=== PATIENT | female | born 1965 | race Caucasian/White ===

== ENCOUNTER 2017-02-11 18:59 | Observation (INO) | payer BC ==
[~2017-02-11] VITALS: Ht 170.2 cm; Wt 102.9 kg
[~2017-02-11 18:59] MED LIST: ADVIL,NUPRIN,M200 MG PO; CITRATE OF MAG296 ML PO; COLACE100 MG PO; ENALAPRIL MALEA10 MG PO; ENALAPRIL MALEAT5 MG PO; Ecotrin PO; LEVOTHROID,S0.125 MG PO; LEVOTHROID100 MCG PO; LEVOTHYROXINE100 MCG PO; LEVOTHYROXINE88 MCG PO; METAMUCIL POWD798 GM PO; TAMIFLU75 MG PO; TERAZOL 745 GM VG; TOPROL XL25 MG PO; ULTRAM50 MG PO; ZITHROMAX500 MG PO
[2017-02-11 20:32] LABS: MCH 30.4 PG (29.0-34.0); MCHC 33.6 G/DL (30.0-36.0); MCV 90.5 FL (83-99); RBC DIS.WIDTH-CV 12.3 % (11.8-14.6); RBC DIS.WIDTH-SD 40.8 % (39-53); RED BLOOD COUNT 4.31 M/uL (3.80-5.20); WHITE BLOOD COUNT 7.9 K/uL (4.1-10.2)
[2017-02-11 20:41] LABS: CHLORIDE 103 mEq/L (99-109); POTASSIUM 3.9 mEq/L (3.7-5.4); SODIUM 140 mEq/L (136-147)
[2017-02-11 20:43] LABS: GLUCOSE 108 mg/dL (70-99)
[2017-02-11 20:45] LABS: ANION GAP 12 MEQ/L (2-14)
[2017-02-11 20:47] LABS: GFR ESTIMATE (CALCULATED) 50 mL/min/
[2017-02-11 20:48] LABS: UREA NITROGEN (BUN) 16 mg/dL (9-23)
[2017-02-11 20:53] LABS: TROP-I INTERPRETATION NEGATIVE; TROPONIN-I < 0.01 ng/mL (0.0-0.30)
[2017-02-11 21:17] LABS: HEMATOLOGY COMMENT 1 SN; MEAN PLAT.VOLUME 11.7 uM^3 (9.5-12.4); PLAT.SUFFICIENCY ADEQUATE; PLATELET COUNT 179 K/uL (156-360)
[2017-02-11] MEDS ORDERED: TOPROL XL25 MG PO (22:50)
[2017-02-11] MEDS ORDERED: TYLENOL EXTRA500 MG PO (22:51)
[2017-02-11] MEDS ORDERED: MICROZIDE12.5 M1 PO (22:51)
[2017-02-11] MEDS ORDERED: VITAMIN B-122000 MC1 PO (22:52)
[2017-02-12 00:38] VITALS: BP 178/106
[2017-02-12 02:44] LABS: MCH 30.5 PG (29.0-34.0); MCHC 33.6 G/DL (30.0-36.0); MCV 90.7 FL (83-99); MEAN PLAT.VOLUME 11.4 uM^3 (9.5-12.4); PLATELET COUNT 164 K/uL (156-360); RBC DIS.WIDTH-CV 12.5 % (11.8-14.6); RBC DIS.WIDTH-SD 40.9 % (39-53); WHITE BLOOD COUNT 8.1 K/uL (4.1-10.2)
[2017-02-12 02:53] LABS: CHLORIDE 104 mEq/L (99-109); POTASSIUM 4.1 mEq/L (3.7-5.4); SODIUM 143 mEq/L (136-147)
[2017-02-12 02:55] LABS: GLUCOSE 96 mg/dL (70-99)
[2017-02-12 02:56] LABS: ANION GAP 13 MEQ/L (2-14)
[2017-02-12 02:58] LABS: GFR ESTIMATE (CALCULATED) > 59 mL/min/
[2017-02-12 02:59] LABS: UREA NITROGEN (BUN) 16 mg/dL (9-23)
[2017-02-12 03:06] LABS: TROP-I INTERPRETATION NEGATIVE; TROPONIN-I < 0.01 ng/mL (0.0-0.30)
[2017-02-12 04:18] VITALS: BP 154/85
[2017-02-12 08:50] VITALS: BP 176/83
[2017-02-12 10:17] LABS: TROP-I INTERPRETATION NEGATIVE; TROPONIN-I < 0.01 ng/mL (0.0-0.30)
[2017-02-12 11:34] VITALS: BP 149/82
[2017-02-12 16:00] VITALS: BP 128/82
== END 2017-02-12 15:56 | disposition home or self-care (01) ==
LOC: EME 18:59 → EDOF 22:10 → 5WEST 02-12 00:27
PROVIDERS: Hospitalist; Student in an Organized Health Care Education/Training Program
DX: R07.9 Chest pain, unspecified (principal); M79.602 Pain in left arm; R68.84 Jaw pain; I10 Essential (primary) hypertension; E03.9 Hypothyroidism, unspecified; Z98.890 Other specified postprocedural states; R11.0 Nausea; R06.02 Shortness of breath; R61 Generalized hyperhidrosis; Z82.49 Family history of ischemic heart disease and other diseases of the circulatory system; Z82.3 Family history of stroke; Z88.5 Allergy status to narcotic agent; Z91.09 Other allergy status, other than to drugs and biological substances; Z91.013 Allergy to seafood
CPT/HCPCS: 71020; 80048; 84484; 85027; 93005; 99281; 99285; G0378; J1650